=== PATIENT | female | born 1985 | race Caucasian/White ===

== ENCOUNTER 2018-06-19 19:31 | Emergency (ER) | payer MEDICAID ==
[~2018-06-19] VITALS: Ht 162.6 cm; Wt 83.6 kg
[2018-06-19 19:32] VITALS: Ht 162.6 cm; Wt 83.6 kg
[2018-06-19] MEDS ORDERED: VISTARIL50 MG PO (19:33)
[2018-06-19] MEDS ORDERED: NEURONTIN 300300 MG PO (19:33)
[2018-06-19] MEDS ORDERED: OXYBUTYNIN CHLOR5 MG PO (19:34)
[2018-06-19] MEDS ORDERED: PROZAC40 MG PO (19:34)
[2018-06-19] MEDS ORDERED: TRAZODONE HCL150 MG PO (19:34)
[2018-06-19] MEDS ORDERED: VISTARIL25 MG PO (20:14)
[2018-06-19] MEDS ORDERED: PERMETHRIN60 GM TOPICAL (20:14)
[2018-06-19 21:58] VITALS: BP 128/71
== END 2018-06-19 21:42 | disposition home or self-care (01) ==
LOC: D.ER 19:31
DX: B88.8 Other specified infestations (principal); L29.9 Pruritus, unspecified; F17.200 Nicotine dependence, unspecified, uncomplicated

== ENCOUNTER 2018-07-27 18:45 | Emergency (ER) | payer MEDICAID ==
[2018-06-19 19:32] VITALS: BMI 31.6
[~2018-07-27 18:45] MED LIST: NEURONTIN 300300 MG PO; OXYBUTYNIN CHLOR5 MG PO; PERMETHRIN60 GM TOPICAL; PROZAC40 MG PO; TRAZODONE HCL150 MG PO; VISTARIL25 MG PO; VISTARIL50 MG PO
== END 2018-07-27 19:00 | disposition left against medical advice (07) ==
LOC: D.ER 18:45
DX: R68.89 Other general symptoms and signs (principal)

== ENCOUNTER 2019-02-17 01:19 | Emergency (ER) | payer MEDICAID ==
[2019-02-17 01:26] VITALS: BMI 29.2
[2019-02-17 02:40] LABS: APPEARANCE HAZY (CLEAR); COLOR PINK (YELLOW); PH 7.5 (5.0-6.0)
[2019-02-17 02:41] LABS: BACTERIA NONE SEEN /hpf (NONE SEEN); BILIRUBIN NEGATIVE (NEGATIVE); EPITHELIAL CELLS NSEEN /hpf (0-5); GLUCOSE NEGATIVE (NEGATIVE); KETONE NEGATIVE (NEGATIVE); NITRITE NEGATIVE (NEGATIVE); PROTEIN 2+ mg/dL (NEGATIVE); RED CELLS - URINE >50 /hpf (0-5); UROBILINOGEN NORMAL (NORMAL); WHITE CELLS - URINE NSEEN /hpf (0-5)
[2019-02-17 02:42] LABS: GRANULAR CAST NONE SEEN /lpf (NONE SEEN); HYALINE CAST NONE SEEN /lpf (NONE SEEN); MUCUS NONE SEEN /lpf (NONE SEEN); SPERMATOZOA NONE SEEN /hpf (NONE SEEN); YEAST NONE SEEN /hpf (NONE SEEN)
[2019-02-17] MEDS ORDERED: AUGMENTIN 875-11 TAB PO (02:53)
[2019-02-17] MEDS ORDERED: TORADOL10 MG PO (02:53)
[2019-02-17] MEDS ORDERED: FLUTICASONE PRO16 GM NASAL (02:53)
[2019-02-17 03:01] VITALS: BP 120/70
== END 2019-02-17 03:01 | disposition home or self-care (01) ==
LOC: D.ER 01:19
PROVIDERS: Family Medicine
DX: R51 Headache (principal)

== ENCOUNTER 2019-03-28 23:06 | Emergency (ER) | payer MEDICAID ==
[~2019-03-28] VITALS: Ht 162.6 cm; Wt 80.5 kg
[~2019-03-28 23:06] MED LIST changes: +AUGMENTIN 875-11 TAB PO; +FLUTICASONE PRO16 GM NASAL; +TORADOL10 MG PO
[2019-03-28 23:26] VITALS: Ht 162.6 cm; Wt 80.5 kg
[2019-03-28] MEDS ORDERED: BENADRYL25 MG PO (23:39)
[2019-03-28] MEDS ORDERED: PREDNISONE20 MG PO (23:40)
[2019-03-28] MEDS ORDERED: PEPCID AC20 MG PO (23:40)
--- NOTE | 2019-03-29 00:17 | NUR ---
DR TRIMBLE NOTIFIED AND REVIEWED PT's BEHAVIOR AND ASSESSMENT RESULTS, PT IS A LOW RISK PER DR TRIMBLE. DR TRIMBLE STATED TO GIVE PT RESOURCES TO PT AT TIME OF DISCHARGE. NO FURTHER ORDERS AT THIS TIME. REVIEWED RESOURCES WITH PT AND SHE VERBALIZED UNDERSTANDING.
[2019-03-29 00:20] VITALS: BP 132/71
== END 2019-03-29 00:20 | disposition home or self-care (01) ==
LOC: D.ER 23:06
DX: T14.8XXA Other injury of unspecified body region, initial encounter (principal); W57.XXXA Bitten or stung by nonvenomous insect and other nonvenomous arthropods, initial encounter; Y93.89 Activity, other specified; Y92.89 Other specified places as the place of occurrence of the external cause

== ENCOUNTER 2019-05-01 07:46 | Emergency (ER) | payer MEDICAID ==
[~2019-05-01] VITALS: Ht 162.6 cm; Wt 75.3 kg
[~2019-05-01 07:46] MED LIST changes: +BENADRYL25 MG PO; +PEPCID AC20 MG PO; +PREDNISONE20 MG PO
[2019-05-01 07:51] VITALS: Ht 162.6 cm; Wt 75.3 kg
[2019-05-01 08:28] LABS: EOSINOPHILS 3.6 % (0-7); HEMATOCRIT 33.1 % (36.0-48.0); HEMOGLOBIN 10.1 g/dL (12-16); IMMATURE GRANULOCYTES 0.1 % (0-5); LYMPHOCYTES 23.3 % (15-50); MCH 21.7 pg (26.0-34.0); MCHC 30.5 g/dL (31.0-37.0); MCV 71.2 fL (80.0-100.0); MEAN PLATELET VOLUME 9.6 fL (7.4-10.4); MONOCYTES 6.6 % (2-11); NEUTROPHILS 65.4 % (40-80); PLATELET COUNT 240 10x3/uL (130-400); RBC 4.65 10x6/uL (4.00-5.40); WBC 8.7 10x3/uL (4.8-10.8)
[2019-05-01 08:41] LABS: ALBUMIN 3.3 g/dL (3.4-5.0); ALKALINE PHOSPHATASE 60 U/L (46-116); ALT (SGPT) 11 U/L (10-68); BILIRUBIN - TOTAL 0.16 mg/dL (0.2-1.3); CALC OSMOLALITY 273 mosm/kg (275-300); CARBON DIOXIDE 27.1 mmol/L (21.0-32.0); CHLORIDE - SERUM 107 mmol/L (98-107); CREATINE KINASE 25 UL (21-215); CREATININE - SERUM 0.8 mg/dL (0.6-1.3); GLUCOSE 80 mg/dL (74-106); MAGNESIUM - SERUM 1.9 mg/dL (1.8-2.4); POTASSIUM - SERUM 4.1 mmol/L (3.5-5.1); PROTEIN - SERUM 6.5 g/dL (6.4-8.2); SODIUM 139 mmol/L (136-145); UREA NITROGEN 5 mg/dL (7-18); eGFR NON AFRICAN AMERICAN 86 mL/min (90-120)
[2019-05-01 09:08] LABS: APPEARANCE CLEAR (CLEAR); COLOR STRAW (YELLOW); SPECIFIC GRAVITY 1.005 (1.005-1.020)
[2019-05-01 09:10] LABS: UDS - AMPHET NEGATIVE QUAL (NEGATIVE); UDS - BARB NEGATIVE QUAL (NEGATIVE); UDS - BENZO NEGATIVE QUAL (NEGATIVE); UDS - COCAINE NEGATIVE QUAL (NEGATIVE); UDS - OPIATE NEGATIVE QUAL (NEGATIVE); UDS - PCP NEGATIVE QUAL (NEGATIVE); UDS - THC NEGATIVE QUAL (NEGATIVE)
[2019-05-01 09:11] LABS: BILIRUBIN NEGATIVE (NEGATIVE); GLUCOSE NEGATIVE (NEGATIVE); KETONE NEGATIVE (NEGATIVE); NITRITE NEGATIVE (NEGATIVE); PROTEIN NEGATIVE (NEGATIVE); UROBILINOGEN NORMAL (NORMAL)
[2019-05-01 09:12] LABS: BACTERIA FEW /hpf (NONE SEEN); EPITHELIAL CELLS 0-5 /hpf (0-5); WHITE CELLS - URINE 0-5 /hpf (0-5)
[2019-05-01] MEDS ORDERED: FERROUS SULFAT325 MG PO (09:18)
[2019-05-01 09:26] VITALS: BP 122/72
[2019-05-01 09:36] LABS: % SATURATION 4 % (15-55); IRON 17 ug/dl (35-150); TOTAL IRON BIND CAPACITY 387 ug/dl (260-445); UNSAT IRON BIND CAPACITY 370 ug/dl (150-375)
== END 2019-05-01 09:27 | disposition home or self-care (01) ==
LOC: D.ER 07:46
PROVIDERS: Family Medicine
DX: D64.9 Anemia, unspecified (principal)

== ENCOUNTER 2019-05-11 09:56 | Emergency (ER) | payer MEDICAID ==
[~2019-05-11] VITALS: Ht 162.6 cm; Wt 74.5 kg
[~2019-05-11 09:56] MED LIST changes: +FERROUS SULFAT325 MG PO
[2019-05-11 10:00] VITALS: BP 113/71; Ht 162.6 cm; Wt 74.5 kg
[2019-05-11] MEDS ORDERED: NEURONTIN 300300 MG PO ×2 (10:03→10:20)
[2019-05-11] MEDS ORDERED: VISTARIL50 MG PO (10:03)
[2019-05-11] MEDS ORDERED: PROZAC40 MG PO (10:04)
[2019-05-11] MEDS ORDERED: TRAZODONE HCL150 MG PO (10:04)
[2019-05-11] MEDS ORDERED: ATARAX 25 MG TA25 MG PO (10:20)
== END 2019-05-11 10:29 | disposition home or self-care (01) ==
LOC: D.ER 09:56
DX: F41.9 Anxiety disorder, unspecified (principal); G47.00 Insomnia, unspecified

== ENCOUNTER 2019-08-18 18:32 | Emergency (ER) | payer MEDICAID ==
[~2019-08-18] VITALS: Ht 165.1 cm; Wt 77.7 kg
[~2019-08-18 18:32] MED LIST changes: +ATARAX 25 MG TA25 MG PO
[2019-08-18 19:04] VITALS: Ht 165.1 cm; Wt 77.7 kg
[2019-08-18] MEDS ORDERED: CLARITIN 10 MG10 MG PO (19:07)
[2019-08-18] MEDS ORDERED: OXYBUTYNIN CHLOR5 MG PO (19:07)
--- NOTE | 2019-08-18 19:35 | NUR ---
DR. TRIMBLE NOTIFIED AND REVIEWED PT'S BEHAVIOR AND ASSESSMENT RESULTS. PT IS A LOW RISK PER DR. TRIMBLE. DR. TRIMBLE STATED TO GIVE RESOURCES TO PT AT TIME OF DISCHARGE. NO FURTHER ORDERS AT THIS TIME. RESOURCES REVIEWED WITH PT AND SHE VERBALIZED UNDERSTANDING.
[2019-08-18 20:44] VITALS: BP 142/70
== END 2019-08-18 20:44 | disposition home or self-care (01) ==
LOC: D.ER 18:32
DX: J10.1 Influenza due to other identified influenza virus with other respiratory manifestations (principal); F17.210 Nicotine dependence, cigarettes, uncomplicated

== ENCOUNTER 2020-02-03 14:02 | Emergency (ER) | payer MEDICAID ==
[~2020-02-03 14:02] MED LIST changes: +CLARITIN 10 MG10 MG PO
[2020-02-03 14:14] VITALS: Ht 165.1 cm
[2020-02-03 15:21] VITALS: BP 138/90
== END 2020-02-03 15:23 | disposition home or self-care (01) ==
LOC: D.ER 14:02
DX: B86 Scabies (principal)

== ENCOUNTER 2020-02-24 12:54 | Emergency (ER) | payer MEDICAID ==
[~2020-02-24] VITALS: Ht 165.1 cm; Wt 79.1 kg
[2020-02-24 13:10] VITALS: Ht 165.1 cm; Wt 79.1 kg
[2020-02-24] MEDS ORDERED: RISPERDAL1 MG PO (13:12)
[2020-02-24] MEDS ORDERED: NAPROSYN500 MG PO (13:44)
[2020-02-24] MEDS ORDERED: MUPIROCIN22 GM TOPICAL (13:44)
[2020-02-24 13:57] VITALS: BP 120/78
== END 2020-02-24 13:58 | disposition home or self-care (01) ==
LOC: D.ER 12:54
DX: S51.812A Laceration without foreign body of left forearm, initial encounter (principal); X78.1XXA Intentional self-harm by knife, initial encounter; Y93.9 Activity, unspecified; Y92.9 Unspecified place or not applicable

== ENCOUNTER 2020-02-28 20:26 | Emergency (ER) | payer MEDICAID ==
[~2020-02-28] VITALS: Ht 165.1 cm; Wt 77.1 kg
[~2020-02-28 20:26] MED LIST changes: +MUPIROCIN22 GM TOPICAL; +NAPROSYN500 MG PO; +RISPERDAL1 MG PO
[2020-02-28 20:51] VITALS: Ht 165.1 cm; Wt 77.1 kg
[2020-02-28] MEDS ORDERED: CLEOCIN HCL150 MG PO (21:08)
[2020-02-28 21:37] VITALS: BP 136/76
== END 2020-02-28 21:36 | disposition home or self-care (01) ==
LOC: D.ER 20:26
DX: Z48.00 Encounter for change or removal of nonsurgical wound dressing (principal); M79.602 Pain in left arm; S51.812D Laceration without foreign body of left forearm, subsequent encounter; X58.XXXD Exposure to other specified factors, subsequent encounter

== ENCOUNTER 2020-05-08 02:06 | Emergency (ER) | payer MEDICAID ==
[~2020-05-08] VITALS: Ht 165.1 cm; Wt 77.7 kg
[~2020-05-08 02:06] MED LIST changes: +CLEOCIN HCL150 MG PO
[2020-05-08 02:12] VITALS: Ht 165.1 cm; Wt 77.7 kg
[2020-05-08] MEDS ORDERED: KLONOPIN1 MG PO (02:18)
[2020-05-08] MEDS ORDERED: ABILIFY10 MG PO (02:18)
[2020-05-08 02:37] LABS: BASOPHILS 0.9 % (0-2); EOSINOPHILS 4.5 % (0-7); HEMATOCRIT 37.3 % (36.0-48.0); IMMATURE GRANULOCYTES 0.5 % (0-5); LYMPHOCYTES 19.1 % (15-50); MCH 27.4 pg (26.0-34.0); MCHC 32.2 g/dL (31.0-37.0); MCV 85.2 fL (80.0-100.0); MEAN PLATELET VOLUME 9.7 fL (7.4-10.4); MONOCYTES 7.3 % (2-11); NEUTROPHILS 67.7 % (40-80); PLATELET COUNT 271 10x3/uL (130-400); RBC 4.38 10x6/uL (4.00-5.40); RDW 14.3 % (11.5-14.5); WBC 10.3 10x3/uL (4.8-10.8)
[2020-05-08 02:51] LABS: CALC OSMOLALITY 269 mosm/kg (275-300); CALCIUM 8.9 mg/dL (8.5-10.1); CARBON DIOXIDE 30.4 mmol/L (21.0-32.0); CHLORIDE - SERUM 102 mmol/L (98-107); GLUCOSE 86 mg/dL (74-106); POTASSIUM - SERUM 4.7 mmol/L (3.5-5.1); SODIUM 136 mmol/L (136-145); UREA NITROGEN 9 mg/dL (7-18); eGFR NON AFRICAN AMERICAN 66 mL/min (90-120)
[2020-05-08 03:05] LABS: ALBUMIN 3.7 g/dL (3.4-5.0); ALKALINE PHOSPHATASE 76 U/L (30-120); ALT (SGPT) 16 U/L (10-68); BILIRUBIN - TOTAL 0.32 mg/dL (0.2-1.3); C-REACTIVE PROTEIN 0.8 mg/dL (0.0-0.9); MAGNESIUM - SERUM 2.1 mg/dL (1.8-2.4); PRO BNP 43 pg/mL (0-125); PROTEIN - SERUM 7.1 g/dL (6.4-8.2); THYROID STIMULATING HORMONE 0.63 uIU/mL (0.36-3.74)
[2020-05-08 03:07] LABS: TROPONIN-I < 0.017 ng/mL (0.000-0.060)
[2020-05-08 03:11] LABS: BILIRUBIN NEGATIVE (NEGATIVE); KETONE NEGATIVE (NEGATIVE); NITRITE NEGATIVE (NEGATIVE); UROBILINOGEN NORMAL (NORMAL)
[2020-05-08 03:13] LABS: HCG URINE NEGATIVE (NEGATIVE)
[2020-05-08 03:18] LABS: UDS - AMPHET POSITIVE QUAL (NEGATIVE); UDS - BARB NEGATIVE QUAL (NEGATIVE); UDS - BENZO NEGATIVE QUAL (NEGATIVE); UDS - COCAINE NEGATIVE QUAL (NEGATIVE); UDS - OPIATE NEGATIVE QUAL (NEGATIVE); UDS - PCP NEGATIVE QUAL (NEGATIVE); UDS - THC NEGATIVE QUAL (NEGATIVE)
[2020-05-08 03:52] VITALS: BP 128/73
== END 2020-05-08 03:40 | disposition home or self-care (01) ==
LOC: D.ER 02:06
PROVIDERS: Family Medicine
DX: R07.89 Other chest pain (principal); R05 Cough; R06.02 Shortness of breath